=== PATIENT | female | born 1935 | race Caucasian/White ===

== ENCOUNTER 2016-08-16 11:47 | Emergency (ER) | payer MEDICARE ==
[2016-08-16 12:22] VITALS: BP 151/74
--- NOTE | 2016-08-16 12:23 | UC ---
Skin Complaint HPI - HPI Summary HPI Summary: Insect bite three days ago on the right ankle. it was very itchy and red. the redness has gone away. there was a lot of swelling yesterday and she iced it and the swellign has improved. - History of Current Complaint Time Seen by Provider: 08/16/16 12:10 Stated Complaint: RIGHT ANKLE SKIN COMPLAINT Hx Obtained From: Patient ?: No Onset/Duration: Gradual Onset Skin Exposure Onset/Duration: Days Ago Timing: Constant Onset Severity: Moderate Current Severity: Mild Pain Scale Used: 0-10 Numeric - no pain. Location: Discrete - right ankle. Character: Swelling, Pruritus - no pain. Alleviating: OTC Meds, Cold Compresses - Allergy/Home Medications Allergies/Adverse Reactions: Allergies Allergy/AdvReac Type Severity Reaction Status Date / Time Sulfa Antibiotics Allergy Unknown Unknown Verified 08/16/16 12:10 Reaction Details Home Medications: Home Medications Aspirin [Aspirin Adult Low Strengt] 81 mg PO DAILY 08/16/16 [History Confirmed 08/16/16] Review of Systems All Other Systems Reviewed And Are Negative: Yes PMH/Surg Hx/FS Hx/Imm Hx Previously Healthy: Yes - Surgical History Surgical History: None - Family History Known Family History: Positive: Cardiac Disease - Social History Alcohol Use: None Substance Use Type: None Smoking Status (MU): Never Smoked Tobacco Physical Exam Triage Information Reviewed: Yes Appearance: Well-Appearing, No Pain Distress, Well-Nourished Vital Signs Reviewed: Yes ENT Exam: Normal Neck exam: Normal Respiratory Exam: Normal Cardiovascular Exam: Normal Abdominal Exam: Normal Musculoskeletal Exam: Normal Neurological Exam: Normal Psychological Exam: Normal Skin Exam: Other - right lateral ankle puffiness and swelling without redness or tenderness or induration. Course/Dx - Course Course Of Treatment: no clinical signs of infection and patient states it is improving - Diagnoses Provider Diagnoses: insect bite. Discharge - Discharge Plan Condition: Good Disposition: HOME Patient Education Materials: Insect Bite or Sting (ED) Referrals: Mohinder Hunter NP [Primary Care Provider] - If Needed
== END 2016-08-16 12:35 | disposition home or self-care (01) ==
LOC: UCCORT 11:47
DX: S90.561A Insect bite (nonvenomous), right ankle, initial encounter (principal); W57.XXXA Bitten or stung by nonvenomous insect and other nonvenomous arthropods, initial encounter; Y93.9 Activity, unspecified; Y92.9 Unspecified place or not applicable; Z88.2 Allergy status to sulfonamides
CPT/HCPCS: 99211; G0463